=== PATIENT | male | born 1950 | race Caucasian/White ===

== ENCOUNTER → 2016-07-20 | Outpatient (CLI) | payer OTHER ==
[~2016-07-20] MED LIST: ASPEC325 PO; FLEC50TA20 PO; FLNIN NAE; METO25TA56 PO; PRLSR20 PO
--- NOTE | 2016-07-20 09:40 | DIAGNOSTIC IMAGING REPORT ---
CT PELVIS, NO CONTRAST CT DOSE: 179.39 mGy.cm CLINICAL HISTORY: LEFT INGUINAL HERNIA TECHNIQUE: The patient was scanned following administration of dilute oral contrast. No intravenous contrast was administered. COMPARISON STUDY: None. FINDINGS: There is no evidence of abdominal aortic aneurysm. There is no evidence of pathologic adenopathy. There is no evidence of acute diverticulitis. Small metallic densities are visualized in both inguinal regions, likely secondary to prior hernia repair. No inguinal hernias are visualized. There is no evidence of ascites. Degenerative changes are present within the spine with facet joint arthropathy. 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 IMPRESSION: 1. Postsurgical change. No evidence of abdominal wall or inguinal hernia 2. No acute inflammatory changes 3. Left symphysis pubis sclerosis. Electronically signed by: Lincoln Link M.D. 07/20/2016 9:39 AM Dictated Date/Time: 07/20/2016 9:33 AM
== END | disposition home or self-care (01) ==
LOC: C.CTS 09:08
PROVIDERS: ATTEND Surgery
DX: K40.90 Unilateral inguinal hernia, without obstruction or gangrene, not specified as recurrent (principal); M85.38 Osteitis condensans, other site

== ENCOUNTER → 2017-02-15 | Outpatient (CLI) | payer OTHER ==
--- NOTE | 2017-02-15 08:25 | DIAGNOSTIC IMAGING REPORT ---
ABDOMEN COMPLETE (US) HISTORY: Pain LUQ PAIN. COMPARISON: None. FINDINGS: Pancreas: The pancreas demonstrates a normal echotexture. Liver: Unremarkable. Small to centimeter left lower lobe cyst. Gallbladder: No gallbladder wall thickening. No gallstones. CBD: 4 mm Kidneys: No hydronephrosis. Spleen: Normal in size. Aorta: Normal in caliber. IVC: Patent. IMPRESSION: No significant abnormality identified within the within the abdomen. Small hepatic cyst The above report was generated using voice recognition software. It may contain grammatical, syntax or spelling errors. Electronically signed by: Tu Carrington M.D. 02/15/2017 8:23 AM Dictated Date/Time: 02/15/2017 8:22 AM
== END | disposition home or self-care (01) ==
LOC: C.ULTR 07:34
PROVIDERS: ATTEND Family Medicine
DX: K76.89 Other specified diseases of liver (principal); R10.12 Left upper quadrant pain; Z80.42 Family history of malignant neoplasm of prostate; R35.1 Nocturia; H93.19 Tinnitus, unspecified ear; H91.90 Unspecified hearing loss, unspecified ear